=== PATIENT | female | born 2000 | race Caucasian/White ===

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

== ENCOUNTER 2018-01-14 10:35 | Emergency (ER) | payer OTHER ==
[2018-01-14 12:01] VITALS: BP 144/79
--- NOTE | 2018-01-14 12:35 | UC ---
Throat Pain/Nasal Charli HPI - HPI Summary HPI Summary: 17 y/o female presents to the urgent care accompany by mother c/o sore throat for the past 2 days. Pt states she was Dx w/ Mononucleosis 2 days ago at [facility]. She was Rx Prednisone taper (60mg day one, 40mg daily for days 2-3, and 20 daily x 3 days, and instructed to take acetaminophen and ibuprofen. Patient state she is not improving her pain w/ swallowing is 10/ 10. Mother request a rapid strep and more Prednisone PO. Pt dneis fever, MONET, ear pain, SOB, difficulty breathing, chest pain, abdominal pain, N/V/D. Pt is UTD w/ all vaccines for her age. - History of Current Complaint Chief Complaint: UCGeneralIllness Stated Complaint: REHECK: MONO DIAGNOSIS,SORE THROAT Time Seen by Provider: 01/14/18 12:25 Hx Obtained From: Patient, Family/Dry Lumber Grader - mother Hx Last Menstrual Period: 12/31/17 ?: No Onset/Duration: Gradual Onset, Lasting Days - 2 days, Still Present, Worse Since - today Severity: Severe Pain Intensity: 10 Pain Scale Used: 0-10 Numeric Cough: None Associated Signs & Symptoms: Positive: Dysphagia - Epiglottits Risk Factors Epiglottis Risk Factors: Negative - Allergies/Home Medications Allergies/Adverse Reactions: Allergies Allergy/AdvReac Type Severity Reaction Status Date / Time No Known Allergies Allergy Verified 01/14/18 11:56 Home Medications: Home Medications Acetaminophen TAB* [Tylenol TAB*] 650 mg PO Q4H PRN 01/14/18 [History Confirmed 01/14/18] Ibuprofen TAB* [Advil TAB*] 400 mg PO Q6H PRN 01/14/18 [History Confirmed ] predniSONE TAB* [Deltasone TAB*] 20 - 60 mg PO SEE INSTRUCTIONS 01/14/18 [ History Confirmed 01/14/18] PMH/Surg Hx/FS Hx/Imm Hx Previously Healthy: Yes - Mother denies PMHX - Surgical History Surgical History: None - Family History Known Family History: Positive: Hypertension - Social History Occupation: Student Lives: Dormitory/Roommates Alcohol Use: Weekly Substance Use Type: None Smoking Status (MU): Never Smoked Tobacco - Immunization History Most Recent Influenza Vaccination: no Vaccination Up to Date: Yes Review of Systems Constitutional: Negative Skin: Negative Eyes: Negative ENT: Sore Throat, Other - swollen neck glands Respiratory: Negative Cardiovascular: Negative Gastrointestinal: Negative Genitourinary: Negative Motor: Negative Neurovascular: Negative Musculoskeletal: Negative Neurological: Negative Psychological: Negative Is Patient Immunocompromised?: No All Other Systems Reviewed And Are Negative: Yes Physical Exam - Summary Physical Exam Summary: VITAL SIGNS: Reviewed. GENERAL: Patient is a well developed and nourished female adolescent who is sitting comfortable in the examining table. Patient is not in any acute respiratory distress. HEAD AND FACE: No signs of trauma. No ecchymosis, hematomas or skull depressions. No sinus tenderness. EYES: PERRLA, EOMI x 2, No injected conjunctiva, no nystagmus. No photophobia. EARS: Hearing grossly intact. Ear canals and tympanic membranes are within normal limits. MOUTH: Positive pharynx with erythema, exudates, mild palatal petechiae.Moderate B/L tonsillar enlargement with exudate. Uvula in midline. NECK: Supple, trachea is midline, Positive anterior cervical lymphadenopathy, no JVD, no carotid bruit, no c-spine tenderness, neck with full ROM. No meningeal signs, no Kernig's or brudzinskis signs. CHEST: Symmetric, no tenderness at palpation LUNGS: Clear to auscultation bilaterally. No wheezing or crackles. CVS: Regular rate and rhythm, S1 and S2 present, no murmurs or gallops appreciated. ABDOMEN: Soft, non-tender. No signs of distention. No rebound no guarding, and no masses palpated. Bowel sounds are normal. EXTREMITIES: FROM in all major joints, no edema, no cyanosis or clubbing. NEURO: Alert and oriented x 3. No acute neurological deficits. Speech is normal and follows commands. SKIN: Dry and warm Triage Information Reviewed: Yes Vital Signs: Initial Vital Signs Temp 98.5 F 01/14/18 11:53 Pulse 86 01/14/18 11:53 Resp 16 01/14/18 11:53 BP 144/79 01/14/18 11:53 Pulse Ox 99 01/14/18 11:53 Throat Pain/Nasal Course/Dx - Course Course Of Treatment: 17 y/o female presents to the urgent care accompany by mother c/o sore throat for the past 2 days. Pt states she was Dx w/ Mononucleosis 2 days ago at [facility]. She was Rx Prednisone taper (60mg day one, 40mg daily for days 2-3, and 20 daily x 3 days, and instructed to take acetaminophen and ibuprofen. Patient state she is not improving her pain w/ swallowing is 10/10. Mother request a rapid strep and more Prednisone PO. Pt dneis fever, MONET, ear pain, SOB, difficulty breathing, chest pain, abdominal pain, N/V/D. Pt is UTD w/ all vaccines for her age.Hx obtained. Pt w/ pharyngitis w/ moderate tonsillar swelling and uvula in mid line on examination. Pt most likely w/ Mononucleosis. Howver mother request rapid strep. Rapid strep : negative. Throat culture sent to lab. Pt will be notified of any abnormality.Pt given Viscous Lidocaine swish and spit. Pt tolerated well medicationa and sore throat felt better. Pt Rx Prednisone to continue w/ taper dose. and viscous lidocaine to alleviate symptoms. Pt Advised on hand washing to avoid spreading. Mother and Pt advised to rest, eat well and avoid strenuous exercise. If symptoms do not improve or worsen advised to return to the urgent care or f/u with her Underground Repairer for further evaluation and treatment.D/C instructions explained. Mother and Pt understood and agreed w/ plan of care. - Differential Dx/Diagnosis Differential Diagnosis/HQI/PQRI: Laryngitis, Mononucleosis, Pharyngitis, Tonsillitis Provider Diagnoses: 1- Pharyngitis most likely Mononucleosis. 2- Elevated BP w/ o Hx of HTN Discharge - Sign-Out/Discharge Documenting (check all that apply): Discharge/Admit/Transfer - D/C home - Discharge Plan Condition: Stable Disposition: HOME Prescriptions: Ibuprofen TAB* [Motrin TAB* 800 MG] 800 mg PO Q6H PRN #30 tab PRN Reason: Sore Throat Lidocaine 2% VISCOUS* [Xylocaine 2% Viscous*] 15 ml SWISH SPIT Q4H PRN #1 btl MDD 8 doses/day PRN Reason: Pain predniSONE TAB* [Deltasone TAB*] 5 mg PO SEE INSTRUCTIONS #7 tab Patient Education Materials: Mononucleosis (ED), Pharyngitis (ED), Low-Sodium Diet (ED) Forms: *School Release Referrals: [facility] – [place] [facility] [Outside] - 3 Days Additional Instructions: 1- Please continue taking Prednisone PO taper dose you have until Monday. Then start on w/ the one sent to pharmacy 2-Please take ibuprofen PO q6-8hrs prn as instructed after meals to alleviate pain and swelling. Increase fluid intake, eat well, rest and avoid strenuous exercise 3-If symptoms do not improve or worsen please return to the urgent care or f/u with your PCP for further evaluation and treatment. If you feel your tonsils are very swollen, and difficulty breathing please go immediately to the ER for further treatment. 4-Your BP is elevated today. please decrease salt in your diet, monitor BP and if it continues to be elevated please f/u with your PCP for further management - Billing Disposition and Condition Condition: STABLE Disposition: HOME
[2018-01-14] MEDS ORDERED: Lidocaine 2% VISCOUS* 15 ML UDC SWISH SPIT ONE (12:52)
== END 2018-01-14 13:30 | disposition home or self-care (01) ==
LOC: UCCORT 10:35
DX: J02.9 Acute pharyngitis, unspecified (principal); R03.0 Elevated blood-pressure reading, without diagnosis of hypertension
CPT/HCPCS: 87070; 87651; 99212; G0463